=== PATIENT | female | born 1950 | race Caucasian/White ===

== ENCOUNTER 2020-10-13 02:43 | Day surgery (SDCO) | payer MEDICARE ==
[2020-10-13 03:12] LABS: BASOPHIL 0.8 % (0-2); EOSINOPHIL 4.5 % (0-7); HCT 40.2 % (37.0-47.0); HGB 13.4 g/dl (12.5-16.0); LYMPHOCYTE 24.1 % (15-48); MCH 29.5 pg (25.0-31.0); MCHC 33.3 g/dL (32.0-36.0); MCV 88.4 fL (78.0-100.0); MONOCYTE 10.8 % (0-12); MPV 10.4 fL (6.0-9.5); NEUTROPHIL 59.4 % (41-80); NRBC 0; PLT 232 K/uL (150-400); RBC 4.55 M/uL (4.20-5.40); RDW 12.3 % (11.5-14.0); WBC 7.1 K/uL (4.0-10.5)
[2020-10-13 03:23] LABS: ALBUMIN 3.7 g/dL (3.4-5.0); BILIRUBIN - TOTAL 0.3 mg/dL (0.2-1.0); BUN/CREAT RATIO (CALC) 21.1 RATIO; CREATININE 0.71 mg/dL (0.51-0.95); GLOBULIN (CALCULATION) 3.3 g/dL; POTASSIUM 3.7 mmol/L (3.5-5.1)
[2020-10-13] MEDS ORDERED: METFORMIN HCL500 MG PO (10:49)
[2020-10-13] MEDS ORDERED: SYNTHROID50 MCG PO (10:49)
[2020-10-13] MEDS ORDERED: VITAMIN B-121000 MC1 PO (10:50)
--- NOTE | 2020-10-13 16:32 | NUR ---
PT REPORTS SHE LIVES ALONE; PT REPORTS INDEPENDENT WITH ADL'S; PLEASE ADVISE OF DISCHARGE NEEDS
[2020-10-14 06:26] LABS: BASOPHIL 0.7 % (0-2); EOSINOPHIL 6.2 % (0-7); HCT 38.4 % (37.0-47.0); HGB 12.8 g/dl (12.5-16.0); LYMPHOCYTE 21.2 % (15-48); MCH 29.6 pg (25.0-31.0); MCHC 33.3 g/dL (32.0-36.0); MCV 88.7 fL (78.0-100.0); MONOCYTE 11.4 % (0-12); MPV 10.6 fL (6.0-9.5); NEUTROPHIL 60.1 % (41-80); NRBC 0; PLT 232 K/uL (150-400); RBC 4.33 M/uL (4.20-5.40); RDW 12.4 % (11.5-14.0)
[2020-10-14 06:46] LABS: BUN/CREAT RATIO (CALC) 21.4 RATIO; CREATININE 0.7 mg/dL (0.51-0.95); POTASSIUM 4.1 mmol/L (3.5-5.1)
[2020-10-14] MEDS ORDERED: ASPIRIN EC81 MG PO (11:23)
== END 2020-10-14 14:16 | disposition home or self-care (01) ==
LOC: FER 02:43 → FMS 07:11
PROVIDERS: Emergency Medicine; ADMIT Internal Medicine
DX: R07.89 Other chest pain (principal); E11.9 Type 2 diabetes mellitus without complications; E03.9 Hypothyroidism, unspecified; E53.8 Deficiency of other specified B group vitamins; I44.0 Atrioventricular block, first degree; K76.0 Fatty (change of) liver, not elsewhere classified; I70.0 Atherosclerosis of aorta; Z79.84 Long term (current) use of oral hypoglycemic drugs; Z79.899 Other long term (current) drug therapy; Z88.0 Allergy status to penicillin; Z88.2 Allergy status to sulfonamides; Z20.822 Contact with and (suspected) exposure to COVID-19
CPT/HCPCS: 36415; 71045; 71275; 80048; 80053; 83036; 84484; 85025; 85379; 93005; G0378; J1650; Q9967; U0002